=== PATIENT | male | born 1955 | race Two or more races ===

== ENCOUNTER 2020-01-10 04:46 | Inpatient (IN) | payer OTHER ==
[~2020-01-10] VITALS: Ht 175.3 cm; Wt 80.6 kg
--- NOTE | 2020-01-10 05:06 | NUR ---
Sivan orona in ED - 01/10/20 at 0507 by [email or web address] PT MEDICATED PER MAR
--- NOTE | 2020-01-10 05:28 | NUR ---
THIS IS A 64Y M THAT COMES IN TODAY FOR CP [id number] AND RECENT COUGH. PT HAS HX OF DIALYSIS AND RECENTLY RETURNED FROM [place]. PT RESTING ON [employer] AT THIS TIME PT CONNECTED TO MONITORING VSS.
--- NOTE | 2020-01-10 05:33 | NUR ---
PT ALSO C/O [facility]
--- NOTE | 2020-01-10 05:35 | NUR ---
DR REA AT BEDSIDE FOR ASSESSMENT AT THIS TIME
--- NOTE | 2020-01-10 05:47 | NUR ---
AT BEDSIDE FOR FURTHER ASSESSMENT AND DISCUSSION ON POC. PT FOUND TO HAVE DIALYSIS CATHETER IN L CHEST BUT DENIES ALL MEDICAL PROBLEMS. 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
[2020-01-10 06:09] LABS: BASOPHILS # (AUTO) 0.05 x10^3/uL (0-0.1); BASOPHILS % (AUTO) 1 % (0-1); EOSINOPHILS # (AUTO) 0.18 x10^3/uL (0-0.4); EOSINOPHILS % (AUTO) 2 % (1-7); LYMPHOCYTES # (AUTO) 1.83 x10^3/uL (1-3.4); LYMPHOCYTES % (AUTO) 21 % (22-44); MD NO; MEAN CORPUSCULAR HEMOGLOBIN 31.7 pg (27.5-34.5); MEAN CORPUSCULAR HGB CONC 33.3 g/dL (33.2-36.2); MEAN PLATELET VOLUME 8.3 fL (7.4-10.4); MONOCYTES # (AUTO) 0.53 x10^3/uL (0.2-0.8); MONOCYTES % (AUTO) 6 % (2-9); NEUTROPHILS # (AUTO) 6.25 x10^3/uL (1.8-6.8); NEUTROPHILS % (AUTO) 71 % (42-75); PLATELET COUNT 135 x10^3/uL (130-400); RED BLOOD COUNT 3.54 x10^6/uL (4.38-5.82); RED CELL DISTRIBUTION WIDTH 13.9 % (9.4-14.8)
[2020-01-10 06:22] LABS: ALBUMIN 3.5 g/dL (3.4-5.0); ANION GAP 15 mmol/L (5-15); CALCIUM 7.2 mg/dL (8.5-10.1); CHLORIDE 114 mmol/L (98-107)
--- NOTE | 2020-01-10 06:36 | NUR ---
PT RESTING ON KIR[employer] HERMAN AT THIS TIME. AWAITING RESULTS AND FURTHER ORDERS
--- NOTE | 2020-01-10 06:52 | NUR ---
REPORT TO DANIEL
--- NOTE | 2020-01-10 07:01 | NUR ---
REPORT FROM [facility]. PT RESTING. VSS
--- NOTE | 2020-01-10 07:40 | NUR ---
REPORT TO BOY
--- NOTE | 2020-01-10 08:22 | NUR ---
[facility] AT BEDSIDE.
[2020-01-10] MEDS ORDERED: ONDANSETRON 2MG/ML, 2ML IVPush PRN (08:30)
[2020-01-10] MEDS ORDERED: ONDANSETRON ODT 4 MG PO PRN (08:30)
[2020-01-10] MEDS: CARVEDILOL 3.125 MG TABLET PO SCH ×2 (08:46→17:20)
[2020-01-10] MEDS: ASPIRIN 81 MG TABLET EC PO SCH (08:46)
[2020-01-10] MEDS: HEPARIN 5,000 UNITS/ML, 1ML SQ SCH ×2 (08:47→16:22)
[2020-01-10 09:06] LABS: TROPONIN I < 0.015 ng/mL (0.000-0.045)
[2020-01-10 11:38] VITALS: BP 150/84
[2020-01-10] MEDS ORDERED: CALC0.5C9 PO (12:04)
[2020-01-10] MEDS: SEVELAMER CARBONATE 800MG TAB PO SCH ×2 (12:37→17:00)
[2020-01-10 13:03] VITALS: BP 179/79
[2020-01-10 15:16] LABS: TROPONIN I 0.024 ng/mL (0.000-0.045)
[2020-01-10 16:21] VITALS: BP 155/83
[2020-01-10] MEDS ORDERED: DIPHENHYDRAMINE 25 MG CAPSULE PO PRN (18:30)
[2020-01-10 19:45] VITALS: BP 158/86
[2020-01-10 20:32] VITALS: BP 157/84
[2020-01-11] MEDS: HEPARIN 5,000 UNITS/ML, 1ML SQ SCH ×3 (00:54→17:11)
[2020-01-11 00:56] VITALS: BP 136/76
[2020-01-11 05:25] VITALS: BP 143/72
[2020-01-11] MEDS: CARVEDILOL 3.125 MG TABLET PO SCH ×2 (05:25→17:11)
[2020-01-11] MEDS: ASPIRIN 81 MG TABLET EC PO SCH (05:25)
[2020-01-11 05:53] LABS: BASOPHILS # (AUTO) 0.06 x10^3/uL (0-0.1); BASOPHILS % (AUTO) 1 % (0-1); EOSINOPHILS # (AUTO) 0.23 x10^3/uL (0-0.4); EOSINOPHILS % (AUTO) 3 % (1-7); LYMPHOCYTES # (AUTO) 2.88 x10^3/uL (1-3.4); LYMPHOCYTES % (AUTO) 34 % (22-44); MD NO; MEAN CORPUSCULAR HEMOGLOBIN 31.9 pg (27.5-34.5); MEAN CORPUSCULAR HGB CONC 33.8 g/dL (33.2-36.2); MEAN CORPUSCULAR VOLUME 94.5 fL (81-97); MEAN PLATELET VOLUME 8.5 fL (7.4-10.4); MONOCYTES # (AUTO) 0.62 x10^3/uL (0.2-0.8); MONOCYTES % (AUTO) 7 % (2-9); NEUTROPHILS # (AUTO) 4.62 x10^3/uL (1.8-6.8); NEUTROPHILS % (AUTO) 55 % (42-75); PLATELET COUNT 134 x10^3/uL (130-400); RED BLOOD COUNT 3.53 x10^6/uL (4.38-5.82); RED CELL DISTRIBUTION WIDTH 13.6 % (9.4-14.8)
[2020-01-11 06:17] VITALS: BP 116/70
[2020-01-11 06:29] LABS: ALBUMIN 3.2 g/dL (3.4-5.0); ANION GAP 12 mmol/L (5-15); CALCIUM 7.3 mg/dL (8.5-10.1); CHLORIDE 107 mmol/L (98-107)
[2020-01-11 06:33] LABS: % IRON SATURATION 35 % (20-55); ALANINE AMINOTRANSFERASE 12 U/L (12-78); ALKALINE PHOSPHATASE 92 U/L (45-117); BILIRUBIN,TOTAL 0.4 mg/dL (0.2-1.0); CREATININE 8.52 mg/dL (0.7-1.3); IRON LEVEL 91 mcg/dL (65-175); TOTAL IRON BINDING CAPACITY 257 mcg/dL (250-450); TOTAL PROTEIN 7.6 g/dL (6.4-8.2)
[2020-01-11] MEDS: SEVELAMER CARBONATE 800MG TAB PO SCH ×3 (08:10→17:11)
[2020-01-11 13:22] VITALS: BP 115/72
[2020-01-11 17:13] VITALS: BP 135/77
[2020-01-11 19:47] VITALS: BP 121/72
[2020-01-12] VITALS (7 sets, daily range): BP systolic 87–153; BP diastolic 51–81
[2020-01-12] MEDS: HEPARIN 5,000 UNITS/ML, 1ML SQ SCH ×3 (00:40→16:52)
[2020-01-12] MEDS: CARVEDILOL 3.125 MG TABLET PO SCH ×3 (06:14→17:06)
[2020-01-12] MEDS: ASPIRIN 81 MG TABLET EC PO SCH (06:14)
[2020-01-12 06:42] LABS: ANION GAP 13 mmol/L (5-15); CALCIUM 7.4 mg/dL (8.5-10.1); CHLORIDE 108 mmol/L (98-107); CREATININE 9.89 mg/dL (0.7-1.3)
[2020-01-12] MEDS: SEVELAMER CARBONATE 800MG TAB PO SCH ×3 (08:28→16:52)
[2020-01-12] MEDS: CHOLECALCIFEROL 1,000 UNIT TABLET PO SCH (08:28)
[2020-01-12 13:39] LABS: CREATININE CLEARANCE,URINE 1.3 (70.0-140.0)
[2020-01-13] VITALS (7 sets, daily range): BP systolic 77–134; BP diastolic 44–77
[2020-01-13] MEDS: HEPARIN 5,000 UNITS/ML, 1ML SQ SCH ×3 (01:09→16:14)
[2020-01-13] MEDS ORDERED: SODIUM CHLORIDE 0.9%, 500ML IVBOLUS ONE (01:30)
[2020-01-13] MEDS: ASPIRIN 81 MG TABLET EC PO SCH (05:34)
[2020-01-13 08:33] LABS: ANION GAP 8 mmol/L (5-15); CALCIUM 7.5 mg/dL (8.5-10.1); CHLORIDE 100 mmol/L (98-107)
[2020-01-13] MEDS: SEVELAMER CARBONATE 800MG TAB PO SCH ×3 (09:00→16:14)
[2020-01-13] MEDS: CHOLECALCIFEROL 1,000 UNIT TABLET PO SCH (09:01)
[2020-01-14] MEDS: HEPARIN 5,000 UNITS/ML, 1ML SQ SCH ×3 (00:26→16:40)
[2020-01-14 01:18] VITALS: BP 112/69
[2020-01-14] MEDS: ASPIRIN 81 MG TABLET EC PO SCH (05:27)
[2020-01-14 07:00] VITALS: BP 131/77
[2020-01-14] MEDS: CHOLECALCIFEROL 1,000 UNIT TABLET PO SCH (08:14)
[2020-01-14] MEDS: SEVELAMER CARBONATE 800MG TAB PO SCH ×3 (08:14→16:40)
[2020-01-14 09:00] LABS: ANION GAP 15 mmol/L (5-15); CALCIUM 7.4 mg/dL (8.5-10.1); CHLORIDE 99 mmol/L (98-107); CREATININE 8.38 mg/dL (0.7-1.3)
[2020-01-14 14:15] VITALS: BP_SYST 121; BP_SYST 159; BP_DIAS 73; BP_DIAS 99
[2020-01-14 19:42] VITALS: BP 111/66
[2020-01-15] MEDS: HEPARIN 5,000 UNITS/ML, 1ML SQ SCH ×3 (00:46→18:02)
[2020-01-15 01:53] VITALS: BP 120/69
[2020-01-15] MEDS: ASPIRIN 81 MG TABLET EC PO SCH (05:49)
[2020-01-15 06:50] VITALS: BP 93/59
[2020-01-15] MEDS: SEVELAMER CARBONATE 800MG TAB PO SCH ×3 (08:14→18:02)
[2020-01-15] MEDS: CHOLECALCIFEROL 1,000 UNIT TABLET PO SCH (08:14)
[2020-01-15] MEDS ORDERED: SENNA/DOCUSATE TABLET PO PRN (09:00)
[2020-01-15 12:37] VITALS: BP 135/77
[2020-01-15 19:46] VITALS: BP 117/75
[2020-01-16] MEDS: HEPARIN 5,000 UNITS/ML, 1ML SQ SCH ×3 (00:10→17:57)
[2020-01-16 01:18] VITALS: BP 100/62
[2020-01-16] MEDS: ASPIRIN 81 MG TABLET EC PO SCH (05:37)
[2020-01-16 07:49] VITALS: BP 103/69
[2020-01-16] MEDS: CHOLECALCIFEROL 1,000 UNIT TABLET PO SCH (08:39)
[2020-01-16] MEDS: SEVELAMER CARBONATE 800MG TAB PO SCH ×3 (08:39→17:00)
[2020-01-16 13:32] VITALS: BP 132/82
[2020-01-16 21:07] VITALS: BP 128/73
[2020-01-17 01:57] VITALS: BP 98/60
[2020-01-17] MEDS: HEPARIN 5,000 UNITS/ML, 1ML SQ SCH ×3 (01:59→16:41)
[2020-01-17] MEDS: ASPIRIN 81 MG TABLET EC PO SCH (06:03)
[2020-01-17 06:50] VITALS: BP 116/73
[2020-01-17] MEDS: SEVELAMER CARBONATE 800MG TAB PO SCH ×3 (07:47→16:41)
[2020-01-17] MEDS: CHOLECALCIFEROL 1,000 UNIT TABLET PO SCH (09:13)
[2020-01-17 12:14] VITALS: BP 109/66
[2020-01-17] MEDS: ACETAMINOPHEN 325 MG TABLET PO PRN (16:45)
[2020-01-17 19:28] VITALS: BP 143/96
[2020-01-18] MEDS: HEPARIN 5,000 UNITS/ML, 1ML SQ SCH ×3 (00:05→16:30)
[2020-01-18 00:06] VITALS: BP 94/54
[2020-01-18] MEDS: ASPIRIN 81 MG TABLET EC PO SCH (05:03)
[2020-01-18 07:08] VITALS: BP 127/70
[2020-01-18] MEDS: SEVELAMER CARBONATE 800MG TAB PO SCH ×3 (09:23→16:56)
[2020-01-18] MEDS: CHOLECALCIFEROL 1,000 UNIT TABLET PO SCH (09:23)
[2020-01-18] MEDS ORDERED: CALCITRIOL 0.5 MCG CAPSULE PO SCH (11:30)
[2020-01-18] MEDS ORDERED: SEVE800T8 PO (13:18)
[2020-01-18] MEDS ORDERED: CHOL10003 PO (13:18)
[2020-01-18] MEDS ORDERED: ASPI81TA45 PO (13:18)
[2020-01-18] MEDS ORDERED: CALC0.25 PO (13:18)
[2020-01-18 13:50] VITALS: BP 123/77
[2020-01-18 15:35] LABS: ANION GAP 12 mmol/L (5-15); CALCIUM 8.5 mg/dL (8.5-10.1); CHLORIDE 96 mmol/L (98-107)
[2020-01-18 15:36] LABS: CREATININE 8.57 mg/dL (0.7-1.3)
[2020-01-18] MEDS: ACETAMINOPHEN 325 MG TABLET PO PRN (18:36)
[2020-01-18 20:00] VITALS: BP 109/72
[2020-01-19 02:00] VITALS: BP 101/67
[2020-01-19] MEDS ORDERED: CALCITRIOL 0.25 MCG CAPSULE PO SCH (09:00)
== END 2020-01-18 21:40 | disposition home or self-care (01) | DRG 291 ==
LOC: ED 05:52 → EDIP 07:28 → INTOOBSV 07:28 → 4WST 08:28 → OBSVTOIN 01-12 14:22
PROVIDERS: ADMIT Hospitalist; ATTEND Internal Medicine Infectious Disease
PROC: 5A1D70Z Performance of Urinary Filtration, Intermittent, Less than 6 Hours Per Day (ICD-10-PCS; 2020-01-10)
PROC: 5A1D70Z Performance of Urinary Filtration, Intermittent, Less than 6 Hours Per Day (ICD-10-PCS; 2020-01-12)
PROC: 0T2BX0Z Change Drainage Device in Bladder, External Approach (ICD-10-PCS; principal; 2020-01-14)
PROC: 5A1D70Z Performance of Urinary Filtration, Intermittent, Less than 6 Hours Per Day (ICD-10-PCS; 2020-01-14)
PROC: 5A1D70Z Performance of Urinary Filtration, Intermittent, Less than 6 Hours Per Day (ICD-10-PCS; 2020-01-16)
DX: I13.2 Hypertensive heart and chronic kidney disease with heart failure and with stage 5 chronic kidney disease, or end stage renal disease (principal); I50.31 Acute diastolic (congestive) heart failure; N18.6 End stage renal disease; E87.2 Acidosis; E11.22 Type 2 diabetes mellitus with diabetic chronic kidney disease; E78.00 Pure hypercholesterolemia, unspecified; Z20.828 Contact with and (suspected) exposure to other viral communicable diseases; D63.8 Anemia in other chronic diseases classified elsewhere; Z79.82 Long term (current) use of aspirin; Z91.15 Patient's noncompliance with renal dialysis; Z91.19 Patient's noncompliance with other medical treatment and regimen; Z99.2 Dependence on renal dialysis; Z79.84 Long term (current) use of oral hypoglycemic drugs
CPT/HCPCS: 36415; 71045; 76770; 80048; 80053; 82040; 82306; 82565; 82728; 83540; 83550; 83690; 83735; 83880; 83970; 84100; 84443; 84484; 84550; 85025; 86480; 86704; 86706; 86803; 87340; 90935; 93005; 93990; G0378; J1644; J7040; Q0163; U0001-CS

== ENCOUNTER 2021-03-27 14:07 | Inpatient (IN) | payer OTHER ==
[~2021-03-27] VITALS: Ht 167.6 cm; Wt 66.3 kg
[~2021-03-27 14:07] MED LIST: ASPI81TA45 PO; CALC0.25 PO; CALC0.5C9 PO; CHOL10003 PO; SEVE800T8 PO
[2021-03-27 15:13] LABS: MEAN CORPUSCULAR HEMOGLOBIN 30.1 pg (27.5-34.5); MEAN CORPUSCULAR HGB CONC 32.7 g/dL (33.2-36.2); MEAN PLATELET VOLUME 8.5 fL (7.4-10.4); PLATELET COUNT 204 x10^3/uL (130-400); RED BLOOD COUNT 2.52 x10^6/uL (4.38-5.82); RED CELL DISTRIBUTION WIDTH 16.1 % (9.4-14.8)
[2021-03-27 15:19] LABS: ALBUMIN 2.8 g/dL (3.4-5.0); ANION GAP 16 mmol/L (5-15); CALCIUM 7.4 mg/dL (8.5-10.1); CHLORIDE 111 mmol/L (98-107)
--- NOTE | 2021-03-27 15:40 | NUR ---
Pt resting in bed, no complaints.
[2021-03-27 15:47] LABS: EOS#(MANUAL) 0.27 x10^3/uL (0.0-0.4); EOS% (MANUAL) 3 % (1-7); LYMPH#(MANUAL) 1.98 x10^3/uL (1-3.4); LYMPHS% (MANUAL) 22 % (22-44); MONOS#(MANUAL) 0.27 x10^3/uL (0.3-2.7); MONOS% (MANUAL) 3 % (2-9); SEG#(MANUAL) 6.48 x10^3/uL (1.8-6.8); SEGS% (MANUAL) 72 % (42-75)
[2021-03-27 15:48] LABS: ANISOCYTOSIS 1+
[2021-03-27 15:49] LABS: HYPOCHROMIA 1+
[2021-03-27 15:50] LABS: <PLATELET ESTIMATE> ADEQUATE; <PLT MORPHOLOGY> NORMAL PLT MORPH
[2021-03-27] MEDS ORDERED: ONDANSETRON 2MG/ML, 2ML IVPush PRN (17:30)
[2021-03-27] MEDS ORDERED: DOCUSATE 100 MG CAPSULE PO PRN (17:30)
[2021-03-27] MEDS ORDERED: HEPARIN 5,000 UNITS/ML, 1ML SQ SCH (17:30)
[2021-03-27] MEDS ORDERED: ACETAMINOPHEN 325 MG TABLET PO PRN (17:30)
[2021-03-27] MEDS ORDERED: ONDANSETRON ODT 4 MG PO PRN (17:30)
[2021-03-27] MEDS ORDERED: hydrALAzine 20 MG/ML, 1ML IVPush PRN (17:30)
[2021-03-27] MEDS ORDERED: ENALAPRILAT 1.25 MG/ML, 2ML IVPush PRN (17:30)
--- NOTE | 2021-03-27 18:55 | NUR ---
Bedside report to LOY Leon, to assume full care. Pt remains connected to all monitors and denies complaints.
--- NOTE | 2021-03-27 19:00 | NUR ---
received report from LOY Oh Pt awaiting Tele bed on the floor.
--- NOTE | 2021-03-27 20:26 | NUR ---
pt resting on gureny, denies needs at this time.
--- NOTE | 2021-03-27 22:16 | NUR ---
Pt to be admitted to [facility], room 488-2. Report called to LOY Brown.
[2021-03-27 22:46] VITALS: BP 158/85
[2021-03-28] VITALS (9 sets, daily range): BP systolic 112–167; BP diastolic 50–83
[2021-03-28] MEDS ORDERED: LISI20TA21 PO (01:23)
[2021-03-28] MEDS ORDERED: BRIMONIDINE (01:23)
[2021-03-28] MEDS ORDERED: ACET250T2 PO (01:23)
[2021-03-28] MEDS ORDERED: DORZ10DR7 LEFTEYE (01:23)
[2021-03-28] MEDS ORDERED: MIDO2.5T PO (01:23)
[2021-03-28] MEDS ORDERED: LATA2.5D4 LEFTEYE (01:23)
[2021-03-28 05:22] LABS: BASOPHILS % (AUTO) 1 % (0-1); EOSINOPHILS % (AUTO) 4 % (1-7); LYMPHOCYTES % (AUTO) 24 % (22-44); MEAN CORPUSCULAR HEMOGLOBIN 30.5 pg (27.5-34.5); MEAN PLATELET VOLUME 8.5 fL (7.4-10.4); MONOCYTES % (AUTO) 5 % (2-9); NEUTROPHILS % (AUTO) 67 % (42-75); PLATELET COUNT 172 x10^3/uL (130-400); RED BLOOD COUNT 2.24 x10^6/uL (4.38-5.82); RED CELL DISTRIBUTION WIDTH 16.3 % (9.4-14.8)
[2021-03-28 05:29] LABS: CHLORIDE 114 mmol/L (98-107)
[2021-03-28 05:35] LABS: ANION GAP 14 mmol/L (5-15); CALCIUM 7.3 mg/dL (8.5-10.1)
[2021-03-28] MEDS: LISINOPRIL 20 MG TABLET PO SCH (10:32)
[2021-03-28] MEDS: SEVELAMER CARBONATE 800MG TAB PO SCH ×2 (12:00→17:00)
[2021-03-29 01:56] VITALS: BP 126/73
[2021-03-29 08:00] VITALS: BP 135/75
[2021-03-29 08:06] LABS: BASOPHILS % (AUTO) 1 % (0-1); EOSINOPHILS % (AUTO) 1 % (1-7); LYMPHOCYTES % (AUTO) 21 % (22-44); MEAN CORPUSCULAR HEMOGLOBIN 29.5 pg (27.5-34.5); MEAN CORPUSCULAR HGB CONC 33.6 g/dL (33.2-36.2); MONOCYTES % (AUTO) 5 % (2-9); NEUTROPHILS % (AUTO) 72 % (42-75); PLATELET COUNT 222 x10^3/uL (130-400); RED CELL DISTRIBUTION WIDTH 16.8 % (9.4-14.8)
[2021-03-29 08:15] LABS: ALBUMIN 2.4 g/dL (3.4-5.0); ANION GAP 5 mmol/L (5-15); CALCIUM 7.6 mg/dL (8.5-10.1); CHLORIDE 102 mmol/L (98-107)
[2021-03-29 08:20] LABS: % IRON SATURATION 21 % (20-55); ALANINE AMINOTRANSFERASE 15 U/L (12-78); ALKALINE PHOSPHATASE 140 U/L (45-117); BILIRUBIN,TOTAL 0.6 mg/dL (0.2-1.0); CREATININE 6.51 mg/dL (0.7-1.3); IRON LEVEL 35 mcg/dL (65-175); TOTAL IRON BINDING CAPACITY 163 mcg/dL (250-450); TOTAL PROTEIN 7.3 g/dL (6.4-8.2)
[2021-03-29] MEDS: SEVELAMER CARBONATE 800MG TAB PO SCH ×3 (08:30→18:04)
[2021-03-29] MEDS: LISINOPRIL 20 MG TABLET PO SCH (09:00)
[2021-03-29 13:46] VITALS: BP 152/75
[2021-03-29] MEDS ORDERED: SEVE800T8 PO (15:54)
[2021-03-29 18:55] VITALS: BP 121/73
[2021-03-29] MEDS: ARTIFICIAL TEARS 15 DROP/ML BOTTLE EACHEYE PRN (22:33)
[2021-03-30 01:43] VITALS: BP 118/75
[2021-03-30 06:22] LABS: ALBUMIN 2.5 g/dL (3.4-5.0); ANION GAP 7 mmol/L (5-15); CALCIUM 7.3 mg/dL (8.5-10.1); CHLORIDE 93 mmol/L (98-107); CREATININE 4.43 mg/dL (0.7-1.3)
[2021-03-30 06:50] VITALS: BP 123/71
[2021-03-30] MEDS ORDERED: PEG15DRO4 EACHEYE (08:18)
[2021-03-30] MEDS: LISINOPRIL 20 MG TABLET PO SCH (09:46)
[2021-03-30] MEDS: SEVELAMER CARBONATE 800MG TAB PO SCH ×2 (09:47→12:15)
[2021-03-30] MEDS ORDERED: ERGOCALCIFEROL 50,000 UNIT CAPSULE PO SCH (10:00)
[2021-03-30] MEDS: ARTIFICIAL TEARS 15 DROP/ML BOTTLE EACHEYE PRN (10:02)
[2021-03-30 13:56] VITALS: BP 114/75
== END 2021-03-30 17:14 | disposition home or self-care (01) | DRG 683 ==
LOC: ED 19:16 → EDIP 19:43 → 4EST 22:38
PROVIDERS: ADMIT Internal Medicine; ATTEND Hospitalist
PROC: 30233N1 Transfusion of Nonautologous Red Blood Cells into Peripheral Vein, Percutaneous Approach (ICD-10-PCS; principal; 2021-03-28)
PROC: 5A1D70Z Performance of Urinary Filtration, Intermittent, Less than 6 Hours Per Day (ICD-10-PCS; 2021-03-28)
PROC: 5A1D70Z Performance of Urinary Filtration, Intermittent, Less than 6 Hours Per Day (ICD-10-PCS; 2021-03-29)
PROC: 5A1D70Z Performance of Urinary Filtration, Intermittent, Less than 6 Hours Per Day (ICD-10-PCS; 2021-03-30)
DX: N17.9 Acute kidney failure, unspecified (principal); E87.2 Acidosis; I12.0 Hypertensive chronic kidney disease with stage 5 chronic kidney disease or end stage renal disease; D63.1 Anemia in chronic kidney disease; N18.6 End stage renal disease; E11.22 Type 2 diabetes mellitus with diabetic chronic kidney disease; Z66 Do not resuscitate; Z93.3 Colostomy status; Z99.2 Dependence on renal dialysis; Z91.19 Patient's noncompliance with other medical treatment and regimen
CPT/HCPCS: 36415; 80048; 80053; 80069; 82040; 82306; 82330; 82728; 83540; 83550; 83735; 84100; 85025; 86704; 86706; 86850; 86900; 86923; 87340; 90935; 96372; 99285; G0378; J1644; P9016